=== PATIENT | male | born 1965 | race Hispanic/Latino ===

== ENCOUNTER 2019-09-01 13:55 | Inpatient (IN) | payer SELFPAY ==
[~2019-09-01] VITALS: Ht 162.6 cm; Wt 79.9 kg
[2019-09-01 14:18] LABS: APPEARANCE,URINE Clear (CLEAR); BILIRUBIN,URINE Small (NEGATIVE); COLOR,URINE Dark Yellow (YELLOW); GLUCOSE, URINE (UA) Negative (NEGATIVE); KETONES,URINE 40 mg/dL (NEGATIVE); LEUKOCYTE ESTERASE ,URINE Negative (NEGATIVE); NITRATE,URINE Negative (NEGATIVE); OCCULT BLOOD,URINE Negative (NEGATIVE); PH,URINE 5.5 (5.0-8.0); PROTEIN,URINE POS 1+ mg/dL (NEGATIVE)
[2019-09-01 14:26] LABS: BASOPHILS % (AUTO) 0.2 % (0.0-5.0); LYMPHOCYTES % (AUTO) 5.4 % (21.0-51.0); MEAN CORPUSCULAR HEMOGLOBIN 31.8 pg (27.0-33.0); MEAN CORPUSCULAR HGB CONC 33.7 g/dL (32.0-36.0); MEAN CORPUSCULAR VOLUME 94.6 fL (79-99); MONOCYTES % (AUTO) 4.8 % (3.0-13.0); NEUTROPHILS % (AUTO) 89.6 % (40.0-77.0); PLATELET COUNT (AUTO) 130 K/uL (130-400); RED BLOOD CELL COUNT(AUTO) 4.96 MIL/uL (4.50-6.20); RED CELL DISTRIBUTION WIDTH 13.3 % (11.0-15.5); WHITE BLOOD COUNT (AUTO) 10.2 K/uL (4.8-10.8)
[2019-09-01 14:27] LABS: BACTERIA,URINE Few /HPF (None Seen)
[2019-09-01 14:28] LABS: MUCUS,URINE Many LPF (None Seen); SQUAMOUS EPITHELIAL CELL,UR 0-2 /HPF (0-2)
[2019-09-01 14:37] LABS: INR 1.13 (0.85-1.15); PARTIAL THROMBOPLASTIN TIME 24.5 SEC (26.3-35.5); PROTHROMBIN TIME 11.8 SEC (9.6-11.6)
[2019-09-01 14:39] LABS: POTASSIUM 3.9 mmol/L (3.5-5.1)
[2019-09-01 14:45] LABS: ALBUMIN 3.6 g/dL (3.5-5.0); BILIRUBIN,TOTAL 0.9 mg/dL (0.2-1.0); TOTAL PROTEIN, SERUM 7.7 g/dL (6.0-8.3)
[2019-09-01 14:53] LABS: B-TYPE NATRIURETIC PEPTIDE 46 pg/mL (0-100)
[2019-09-01] MEDS ORDERED: KETOROLAC TROMETHAMINE 30MG/ML ONE (15:11)
[2019-09-01] MEDS ORDERED: ONDANSETRON HCL 4 MG/2 ML VIAL IVP PRN (15:45)
[2019-09-01] MEDS ORDERED: KETOROLAC TROMETHAMINE 15MG/ML IM PRN (15:45)
[2019-09-01] MEDS: SODIUM CHLORIDE 0.9% 1000ML 1,000 ML IV SCH (15:45)
[2019-09-01] MEDS ORDERED: MORPHINE SULFATE 2 MG/ML 1ML SYG IVP PRN ×2 (15:45→19:45)
[2019-09-01] MEDS ORDERED: ONDANSETRON HCL 4 MG/2 ML VIAL ONE (15:57)
[2019-09-01] MEDS ORDERED: MORPHINE SULFATE 2 MG/ML 1ML SYG ONE (15:57)
[2019-09-01] MEDS ORDERED: SODIUM CHLORIDE 0.9% 1000ML 1,000 ML IV ONE (15:57)
[2019-09-01] MEDS ORDERED: IOHEXOL 350 MG/ML 100ML INFUS..BTL IV ONE (16:29)
[2019-09-01] MEDS ORDERED: HEPARIN SODIUM 5000UNIT/ML 1ML VIAL SQ PRN (17:30)
[2019-09-01] MEDS ORDERED: HEPARIN SODIUM 5000UNIT/ML 1ML VIAL ONE (18:08)
[2019-09-01] MEDS ORDERED: HEPARIN 25000 UNITS/250 ML D5W 250 ML IV ONE (18:08)
[2019-09-01] MEDS ORDERED: ZOSYN 3.375GM+NS 50ML 50 ML IV ONE (19:20)
[2019-09-01] MEDS ORDERED: RENAL DOSE IV SCH (19:45)
[2019-09-01] MEDS: ZOSYN 3.375GM+NS 50ML 50 ML IV SCH (19:45)
[2019-09-01 20:18] LABS: INR 1.18 (0.85-1.15); PROTHROMBIN TIME 12.3 SEC (9.6-11.6)
[2019-09-01 20:24] LABS: PARTIAL THROMBOPLASTIN TIME > 120.0 SEC (26.3-35.5)
[2019-09-01 21:40] VITALS: BP 176/109
[2019-09-01] MEDS: MORPHINE SULFATE 4 MG/1ML SYG IV PRN (21:51)
[2019-09-01 23:45] VITALS: BP 155/90
[2019-09-02] MEDS: SODIUM CHLORIDE 0.9% 1000ML 1,000 ML IV SCH ×2 (01:45→10:59)
[2019-09-02] MEDS: ZOSYN 3.375GM+NS 50ML 50 ML IV SCH ×3 (03:17→21:02)
[2019-09-02] MEDS: MORPHINE SULFATE 4 MG/1ML SYG IV PRN (03:36)
[2019-09-02 03:56] VITALS: BP 167/89
[2019-09-02 06:58] VITALS: BP 141/89
--- NOTE | 2019-09-02 08:00 | NUR ---
ASSESSMENT PT IS AAOX3 DENIES CP DENIES SOB RESTING IN BED AT THIS TIME. BREATHING PATTERN IS EVEN AND UNLABORED. NOTED RIGHT NGT IN PLACE TO LIWS. ABD SOFT ROUND NONTENDER DENIES PAIN. VISITOR AT BEDSIDE, CALL LIGHT WITHIN REACH.
[2019-09-02 11:17] VITALS: BP 143/79
[2019-09-02 15:20] VITALS: BP 139/84
[2019-09-02] MEDS: HEPARIN 25000 UNITS/250 ML D5W 250 ML IV PRN (16:10)
--- NOTE | 2019-09-02 16:26 | NUR ---
DC PLAN VISITED WITH PATIENT. PATIENT LIVES WITH DAD AND BROTHER. PATIENT HAS NO SERVICES OR DME'S. FEELS SAFE TO RETURN HOME. GAVE LOW INCOME CLINIC INFO. Addendum: 09/02/19 at 1627 by MAHESH TAPIA RN CM Amended: Links added.
--- NOTE | 2019-09-02 17:43 | NUR ---
DR NUGYEN ROUNDED ORDERS RECEIVED AND CARRIED OUT. NGT REMOVED, NGT INTACT. CLEAR LIQUID DIET ORDERED, COUMADIN QHS ORDERED.
[2019-09-02 18:14] LABS: INR 1.1 (0.85-1.15); PARTIAL THROMBOPLASTIN TIME 43.4 SEC (26.3-35.5); PROTHROMBIN TIME 11.5 SEC (9.6-11.6)
[2019-09-02] MEDS ORDERED: HEPARIN SODIUM 5000UNIT/ML 1ML VIAL IV SCH (18:30)
[2019-09-02 19:49] VITALS: BP 119/78
[2019-09-02] MEDS: WARFARIN SODIUM 5 MG TAB PO SCH (21:01)
[2019-09-03] VITALS: BP 140/70
[2019-09-03 00:21] LABS: INR 1.13 (0.85-1.15); PARTIAL THROMBOPLASTIN TIME 68.9 SEC (26.3-35.5); PROTHROMBIN TIME 11.8 SEC (9.6-11.6)
--- NOTE | 2019-09-03 02:09 | NUR ---
SPOKE TO AURELIO IN LAB IN REGARDS TO MISSING PTT RESULT FOR 09/03/19 @0000. AURELIO SAID THE TECH WHO [facility] ENTERED TIME IN AT 1155 AM INSTEAD OF 2355. RESULTS ARE PLACED IN SYSTEM FOR 1155 AM. PATIENT DID HAVE PTT DRAWN AT CORRECT TIME.
[2019-09-03] MEDS ORDERED: ACETAMINOPHEN 325 MG TAB ONE (02:40)
[2019-09-03] MEDS ORDERED: ACETAMINOPHEN 325 MG TAB PO PRN (02:45)
[2019-09-03] MEDS: ZOSYN 3.375GM+NS 50ML 50 ML IV SCH ×3 (03:48→20:31)
[2019-09-03 04:37] VITALS: BP 147/88
[2019-09-03 06:08] LABS: BASOPHILS % (AUTO) 0.2 % (0.0-5.0); EOSINOPHILS % (AUTO) 2.2 % (0.0-8.0); HEMATOCRIT 43.6 % (42-54); LYMPHOCYTES % (AUTO) 19.8 % (21.0-51.0); MEAN CORPUSCULAR HEMOGLOBIN 32.1 pg (27.0-33.0); MEAN CORPUSCULAR HGB CONC 34.2 g/dL (32.0-36.0); MEAN CORPUSCULAR VOLUME 93.8 fL (79-99); MONOCYTES % (AUTO) 9.2 % (3.0-13.0); NEUTROPHILS % (AUTO) 68.6 % (40.0-77.0); PLATELET COUNT (AUTO) 138 K/uL (130-400); RED BLOOD CELL COUNT(AUTO) 4.65 MIL/uL (4.50-6.20); RED CELL DISTRIBUTION WIDTH 13.2 % (11.0-15.5); WHITE BLOOD COUNT (AUTO) 5.6 K/uL (4.8-10.8)
[2019-09-03 06:19] LABS: POTASSIUM 3.6 mmol/L (3.5-5.1)
[2019-09-03 07:44] VITALS: BP 121/73
--- NOTE | 2019-09-03 08:00 | NUR ---
ASSESSMENT PT IS AAOX3 DENIES CP DENIES SOB RESTING IN BED AT THIS TIME. DENIES ABD PAIN, BREATHING PATTERN IS EVEN AND UNLABORED. DR GOLDEN ROUNDED. PATIENT REMAINS ON HEPARIN GTT. CALL LIGHT WITHIN REACH.
[2019-09-03] MEDS: HEPARIN 25000 UNITS/250 ML D5W 250 ML IV PRN (10:59)
[2019-09-03 11:38] VITALS: BP 122/76
--- NOTE | 2019-09-03 12:40 | NUR ---
STATUS RESTING IN BED NO COMPLAINTS FAMILY IS AT BEDSIDE
[2019-09-03] MEDS: WARFARIN SODIUM 5 MG TAB PO SCH (15:32)
[2019-09-03 15:33] VITALS: BP 120/71
--- NOTE | 2019-09-03 16:45 | NUR ---
STATUS DENIES ABD PAIN DENIES NV NO COMPLAINTS. REMAINS ON HEPARIN GTT PER PROTOCOL.
[2019-09-03 20:12] VITALS: BP 146/85
[2019-09-04] VITALS (7 sets, daily range): BP systolic 109–151; BP diastolic 62–81
[2019-09-04] MEDS: ZOSYN 3.375GM+NS 50ML 50 ML IV SCH ×3 (02:48→20:24)
[2019-09-04 03:50] LABS: INR 1.22 (0.85-1.15); PARTIAL THROMBOPLASTIN TIME 63.7 SEC (26.3-35.5); PROTHROMBIN TIME 12.7 SEC (9.6-11.6)
[2019-09-04] MEDS: HEPARIN 25000 UNITS/250 ML D5W 250 ML IV PRN (06:50)
--- NOTE | 2019-09-04 07:35 | NUR ---
ASSESSMENT ENCOUNTERED PT A&OX3, CALM COOPERATIVE AND DOES NOT APPEAR TO BE IN ANY DISTRESS NOR ANY NEURO DEFICITS PRESENT. PT DENIES PAIN, SOB, NAUSEA. PT IS AMBULATORY, GAIT STEADY AND STRONG WITH STAND BY ASSIST. CALL LIGHT WITHIN REACH, FAMILY AT BEDSIDE.
[2019-09-04] MEDS ORDERED: WARFARIN SODIUM 5 MG TAB PO SCH (16:00)
[2019-09-04] MEDS ORDERED: WARFARIN SODIUM 7.5 MG TAB PO SCH (16:00)
[2019-09-05 03:25] VITALS: BP 114/72
[2019-09-05 04:07] LABS: HEMATOCRIT 45.2 % (42-54); MEAN CORPUSCULAR HEMOGLOBIN 31.8 pg (27.0-33.0); MEAN CORPUSCULAR HGB CONC 33.9 g/dL (32.0-36.0); MEAN CORPUSCULAR VOLUME 93.7 fL (79-99); PLATELET COUNT (AUTO) 181 K/uL (130-400); RED BLOOD CELL COUNT(AUTO) 4.82 MIL/uL (4.50-6.20); RED CELL DISTRIBUTION WIDTH 12.8 % (11.0-15.5); WHITE BLOOD COUNT (AUTO) 4.5 K/uL (4.8-10.8)
[2019-09-05 04:09] LABS: INR 1.44 (0.85-1.15); PARTIAL THROMBOPLASTIN TIME 51.9 SEC (26.3-35.5); PROTHROMBIN TIME 14.6 SEC (9.6-11.6)
[2019-09-05 04:31] LABS: CREATININE 1.2 mg/dL (0.5-1.5); POTASSIUM 3.7 mmol/L (3.5-5.1)
[2019-09-05] MEDS: ZOSYN 3.375GM+NS 50ML 50 ML IV SCH ×3 (04:34→20:48)
[2019-09-05] MEDS: HEPARIN 25000 UNITS/250 ML D5W 250 ML IV PRN ×2 (04:38→22:56)
[2019-09-05 07:42] VITALS: BP 117/64
--- NOTE | 2019-09-05 07:45 | NUR ---
ASSESSMENT ENCOUNTERED PT A&OX3, AMBULATING TO BATHROOM AND BACK TO BED, CALM COOPERATIVE AND DOES NOT APPEAR TO BE IN ANY DISTRESS NOR ANY NEURO DEFICITS PRESENT. PT DENIES PAIN, SOB, NAUSEA, GAIT STEADY AND STRONG WITH STAND BY ASSIST. PT IS ABLE TO TOLERATE FOODS, FLUIDS AND MEDICATION WITH NO THROAT CLEARING OR COUGH, CALL LIGHT WITHIN REACH, FAMILY AT BEDSIDE.
[2019-09-05 11:43] VITALS: BP 113/65
[2019-09-05] MEDS: WARFARIN SODIUM 2.5 MG TAB PO SCH (16:03)
[2019-09-05 18:46] VITALS: BP 111/78
[2019-09-05 23:40] VITALS: BP 123/76
[2019-09-06 03:40] VITALS: BP 111/71
[2019-09-06 03:52] LABS: MEAN CORPUSCULAR HEMOGLOBIN 32.3 pg (27.0-33.0); MEAN CORPUSCULAR HGB CONC 34.1 g/dL (32.0-36.0); MEAN CORPUSCULAR VOLUME 94.6 fL (79-99); NUCLEATED RED BLOOD CELLS 0.1 % (0.0-0.19); PLATELET COUNT (AUTO) 182 K/uL (130-400); RED BLOOD CELL COUNT(AUTO) 4.65 MIL/uL (4.50-6.20)
[2019-09-06 04:06] LABS: CREATININE 1.2 mg/dL (0.5-1.5); INR 1.98 (0.85-1.15); PARTIAL THROMBOPLASTIN TIME 79.1 SEC (26.3-35.5); POTASSIUM 3.9 mmol/L (3.5-5.1); PROTHROMBIN TIME 20.3 SEC (9.6-11.6)
[2019-09-06] MEDS: ZOSYN 3.375GM+NS 50ML 50 ML IV SCH ×2 (04:29→14:42)
[2019-09-06 07:44] VITALS: BP 114/70
[2019-09-06 11:30] VITALS: BP 161/88
[2019-09-06 13:02] VITALS: BP 113/72
--- NOTE | 2019-09-06 13:59 | NUR ---
RD NOTIFICATION DIET: GI SOFT/BLAND. PO INTAKE 100% AND HAS GOOD APPETITE. LBM: 09/06; PT WITH HX OF CONSTIPATION PER PT. SKIN INTACT, NO EDEMA NOTED. PT NEW TO COUMADIN MEDICATION AND UNFAMILIAR WITH VITAMIN K (NUTRIENT/DRUG) INTERACTION. RD PROVIDED VITAMIN K AND COUMADIN DIET AND NUTRITION EDUCATION ALONG WITH HIGH FIBER MEDICAL NUTRITION THERAPY. PT AND FAMILY ASKED QUESTIONS, RD ANSWERED AND FAMILY VERBALIZED UNDERSTANDING. EDUCATION MATERIALS PROVIDED. RD RECOMMENDS CHANGE DIET ORDER TO REGULAR DIET IN ORDER TO INCREASE FIBER INTAKE, D/C GI SOFT/BLAND RD PROVIDED DIET AND NUTRITION EDUCATION ENCOURAGE PLENTY FLUIDS INTAKE DAILY RD WILL FOLLOW UP NEEDED, THANK YOU. Addendum: 09/06/19 at [address] Amended: Links added.
--- NOTE | 2019-09-06 14:03 | NUR ---
NUTRITION EDUCATION PT NEW TO COUMADIN MEDICATION AND UNFAMILIAR WITH VITAMIN K (NUTRIENT/DRUG) INTERACTION. RD PROVIDED VITAMIN K AND COUMADIN DIET AND NUTRITION EDUCATION ALONG WITH HIGH FIBER MEDICAL NUTRITION THERAPY. PT AND FAMILY ASKED QUESTIONS, RD ANSWERED AND FAMILY VERBALIZED UNDERSTANDING. EDUCATION MATERIALS PROVIDED. Addendum: 09/06/19 at [address] Amended: Links added.
[2019-09-06] MEDS ORDERED: WARF4TAB72 PO (15:23)
[2019-09-06] MEDS ORDERED: WARF2.5T85 PO (15:23)
[2019-09-06] MEDS: WARFARIN SODIUM 2.5 MG TAB PO SCH (15:34)
[2019-09-06 16:26] VITALS: BP 131/73
--- NOTE | 2019-09-06 18:34 | NUR ---
DISCHARGE INSTRUCTIONS GIVEN TO PATIENT. TEACH BACK METHOD USED TO EDUCATE PATIENT ON NEW MED PRESCRIBED, S/S TO MONITOR, WHEN TO CALL MD, APPOINTMENTS, AND WARFARIN DIET AND PT/INR CHECKS. PATIENT DOES NOT HAVE A PCP AT THIS TIME BUT IS INSTRUCTED TO GET HIS INR CHECKED IN 3-5 DAYS. HE SAID THAT HE WILL START LOOKING FOR ONE TOMORROW TO ENSURE THAT HE GETS SEEN ON MONDAY FOR TRANSITION VISIT AND PT/INR CHECK. PIV REMOVED. BLEEDING CONTROLLED. TELE PACK REMOVED AND RETURNED. ALL BELONGINGS WERE PACKED AND TAKEN HOME.
== END 2019-09-06 18:00 | disposition home or self-care (01) | DRG 441 ==
LOC: EDH 13:55 → OBSVTOIN 13:56 → EDHIP 13:56 → 2DH 21:00
PROVIDERS: ADMIT Internal Medicine; ATTEND Internal Medicine
DX: I81 Portal vein thrombosis (principal); K55.069 Acute infarction of intestine, part and extent unspecified; K65.4 Sclerosing mesenteritis; K74.60 Unspecified cirrhosis of liver; D69.6 Thrombocytopenia, unspecified; F10.20 Alcohol dependence, uncomplicated; K57.30 Diverticulosis of large intestine without perforation or abscess without bleeding; K59.00 Constipation, unspecified; K76.0 Fatty (change of) liver, not elsewhere classified; Z79.01 Long term (current) use of anticoagulants; Z82.49 Family history of ischemic heart disease and other diseases of the circulatory system
CPT/HCPCS: 36415; 71045; 74176; 74178; 80048; 80053; 81001; 82150; 82550; 83605; 83690; 83880; 84145; 84484; 85025; 85027; 85610; 85651; 85730; 86140; 93005; G0378; J1644; J1885; J2270; J2405; J2543; J7030; Q9967